=== PATIENT | male | born 1985 | race Hispanic/Latino ===

== ENCOUNTER 2016-11-18 07:41 | Emergency (ER) | payer OTHER ==
[~2016-11-18] VITALS: Ht 179.1 cm; Wt 99.1 kg
[2016-11-18 07:58] VITALS: BP 146/98; PULSE 95; RESP 14; O2SAT 97
--- NOTE | 2016-11-18 08:07 | ED.REPORT ---
HPI-Neurologic Deficit Date of Service November 18, 2016 ED Provider: Jelly Preston MD Patient is a 31 year old male who was previously seen at for left sided facial numbness who presents to the ED due to the same complaint, onset 3 days ago. Associated symptoms include difficulty thinking and a left side tooth ache that is no longer in pain. He denies any numbness in his legs or arms or having trouble walking. The patient reports that he has had difficulty eating because food falls out. The patient was seen at the , who recommended he follow up with the ED if his symptoms did not resolve after a couple of days. Nursing Notes Stated Complaint: LEFT SIDE OF FACE IS NUMB Chief Complaint: General Complaint Nursing Notes Reviewed: Yes Allergies: Coded Allergies: Penicillins (Verified Allergy, Unknown, RASH, 05/16/09) Scheduled Valacyclovir (Valacyclovir) 1,000 Mg Tablet 1,000 MG PO TID General Time Seen by Provider: 09:20 Chief Complaint Other (left side face numbness) Hx Obtained From: Patient Arrived By: Walk-in Sudden in Onset?: Yes Onset Occurred: 3 days ago Symptom Duration: Since onset Location: : Head Recent Healthcare: No recent hospitalization, Recent doctor visit Similar Sx Previous: No Past Medical History Past Medical History Reports: Hypertension Smoking History Current Some Day Smoker Social History Alcohol Use: "Social" Drug Use: Denies drug use, THC Other Social History: Good social support Ambulatory Status Independent Review of Systems Review of Systems Note: no numbness in arms or legs some difficulty thinkings left side tooth ache, no longer in pain Neurologic: Reports: Numbness (left side of face), Denies: Problem walking Complete sys rev & neg: except as marked. Physical Exam Initial Vital Signs Vital Signs (First) Date Time Temp Pulse Resp B/P Pulse Ox O2 Delivery O2 Flow Rate FiO2 11/18/16 07:58 37.8 95 14 146/98 97 Initial VS: Reviewed General/Constitutional: Awake, Alert, No acute distress Head / Eyes: Atraumatic, Normocephalic, PERRL, EOMI Respiratory / Chest: Atraumatic, Breath sounds NL, Breath sounds = bilat, No respiratory distress Cardiovascular: Heart rate NL, Regular rhythm, Heart sounds NL Neurologic: Oriented X3, Speech NL House- Brackman classification: level 5 ENT: Atraumatic, Airway patent, Mucous membranes moist left lower posterior significant cavitiy, no abscess Skin: Atraumatic, Color NL, No rash, Warm, Dry Re-Eval/Medical Decision Re-Evaluation/Progress : Time of Eval: 09:29 Re-Evaluation/Progress Note: Discussed diagnosis and plan for discharge during initial interview. The patient understands and agrees to the plan for treatment and discharge. All questions were addressed. Counseled Regarding: Diagnosis, Need for follow-up, When/why to return to ED Discharge & Departure Impression: Primary Impression: Crump's palsy Additional Impression: Elevated blood pressure reading Disposition: Home Discharge Condition All VS Reviewed: Yes Condition: Stable Patient Instructions: Crump's Palsy (ED) Additional Instructions: The urgent care doc got the diagnosis perfect. I am going to suggest we add Valcyclovir (an antiviral medication) to the prednisone you are already on. I have electrectronically sent this to [facility] for you today. I appreciate the questions you have about blood pressure and blood sugar. Unfortunately this in not what we do in the ER. Please check in over at the residency clinic again to establish as primary care doctor. I've given you some information from [employer] a website we frequently use in the ER, so you can feel as informed as possible about your diagnosis. Referrals: Tevin Monzon MD (PCP) [facility] Julián Attestation Portions of this note were transcribed by Juliet Chacon. I, Dr. Preston personally performed the history, physical exam and medical decision-making; I reviewed and confirmed the accuracy of the information in the transcribed note. Signed by: Julián Pavon, 11/18/16 and 0928. copies to: Tevin Monzon MD; [facility] Jelly Preston MD November 18, 2016 08:07 Carito Chacon November 18, 2016 09:27
[2016-11-18] MEDS ORDERED: VALA100026 PO (09:35)
== END 2016-11-18 09:56 | disposition home or self-care (01) ==
LOC: SED 07:41
DX: G51.0 Bell's palsy (principal); I10 Essential (primary) hypertension; F17.200 Nicotine dependence, unspecified, uncomplicated; Z88.0 Allergy status to penicillin